=== PATIENT | female | born 1995 | race Hispanic/Latino ===

== ENCOUNTER 2020-09-03 18:58 | Emergency (ER) | payer OTHER, MEDICAID ==
--- NOTE | 2020-09-03 19:27 | Emergency Department Report ---
Blank Doc - Documentation Documentation: 25-year-old female that presents with right axilla abscess. This initial assessment/diagnostic orders/clinical plan/treatment(s) is/are subject to change based on patient's health status, clinical progression and re- assessment by fellow clinical providers in the ED. Further treatment and workup at subsequent clinical providers discretion. Patient/guardians urged not to elope from the ED as their condition may be serious if not clinically assessed and managed. Initial orders include: 1- Patient sent to [facility] for further evaluation and treatment
[2020-09-03 19:32] VITALS: BP 132/95
--- NOTE | 2020-09-03 21:35 | Emergency Department Report ---
- General Chief complaint: Skin/Abscess/Foreign Body Stated complaint: ABCESS Time Seen by Provider: 09/03/20 19:25 Source: patient Mode of arrival: Ambulatory Limitations: No Limitations - History of Present Illness Initial comments: Patient is 25 years old female with no significant past medical history. Patient presented to the ER complaining of right axilla pain and swelling since yesterday. Patient denied any fever or chills. Patient denied any other complaint. MD complaint: abscess/boil -: days(s) (2) Tetanus Up to Date: yes Location: RUE Severity: moderate Severity scale (0 -10): 5 Consistency: constant Treatments Prior to Arrival: none - Related Data Previous Rx's Medication Instructions Recorded Last Taken Type Clindamycin [Clindamycin CAP] 300 mg PO Q8H #30 cap 04/23/20 Unknown Rx predniSONE [Deltasone] 40 mg PO QDAY 5 Days #10 tab 04/23/20 Unknown Rx Allergies Allergy/AdvReac Type Severity Reaction Status Date / Time No Known Allergies Allergy Unverified 04/23/20 09:05 Abscess Boil HPI - HPI Chief Complaint: Skin/Abscess/Foreign Body Stated Complaint: ABCESS Time Seen by Provider: 09/03/20 19:25 Home Medications: Previous Rx's Medication Instructions Recorded Last Taken Type Clindamycin [Clindamycin CAP] 300 mg PO Q8H #30 cap 04/23/20 Unknown Rx predniSONE [Deltasone] 40 mg PO QDAY 5 Days #10 tab 04/23/20 Unknown Rx Allergies/Adverse Reactions: Allergies Allergy/AdvReac Type Severity Reaction Status Date / Time No Known Allergies Allergy Unverified 04/23/20 09:05 ED Review of Systems ROS: Stated complaint: ABCESS Other details as noted in HPI Comment: All other systems reviewed and negative Constitutional: denies: chills, fever Respiratory: denies: cough, shortness of breath, SOB with exertion, SOB at rest, wheezing Cardiovascular: denies: chest pain, palpitations Gastrointestinal: denies: abdominal pain, nausea, vomiting, diarrhea, constipation, hematemesis Musculoskeletal: denies: back pain Skin: lesions Neurological: denies: headache, weakness ED Past Medical Hx - Past Medical History Previous Medical History?: No - Surgical History Past Surgical History?: Yes Additional Surgical History: right ankle - Social History Smoking Status: Never Smoker Substance Use Type: None - Medications Home Medications: Home Medications Medication Instructions Recorded Confirmed Last Taken Type Clindamycin [Clindamycin CAP] 300 mg PO Q8H #30 cap 04/23/20 Unknown Rx predniSONE [Deltasone] 40 mg PO QDAY 5 Days #10 tab 04/23/20 Unknown Rx ED Physical Exam - General Limitations: No Limitations General appearance: alert, in no apparent distress - Head Head exam: Present: atraumatic, normocephalic, normal inspection - Eye Eye exam: Present: normal appearance - ENT ENT exam: Present: normal exam, normal orophraynx, mucous membranes moist - Neck Neck exam: Present: normal inspection, full ROM. Absent: tenderness, meningismus - Respiratory Respiratory exam: Present: normal lung sounds bilaterally - Cardiovascular Cardiovascular Exam: Present: regular rate, normal rhythm, normal heart sounds - GI/Abdominal GI/Abdominal exam: Present: soft. Absent: tenderness - Back Exam Back exam: Present: normal inspection. Absent: CVA tenderness (R), CVA tenderness (L) - Neurological Exam Neurological exam: Present: alert, oriented X3, CN II-XII intact - Skin Skin exam: Present: warm, erythema, other (Right axilla with swelling, redness and tenderness. Nonfluctuant.) ED Course Vital Signs 09/03/20 19:27 Temperature 99.5 F Pulse Rate 107 H Respiratory 18 Rate Blood Pressure 132/95 O2 Sat by Pulse 99 Oximetry ED Medical Decision Making - Medical Decision Making Patient is 25 years old female with no significant past medical history. Patient presented to the ER complaining of right axilla pain and swelling since yesterday. Patient denied any fever or chills. Patient denied any other complaint. Right axilla examined. There is a swelling and tenderness however there is no fluctuant fluid to indicate an abscess at this moment. Patient advised to apply warm compresses. Patient given prescription for doxycycline. Patient most likely suppurative hidradenitis. Patient advised to return to the ER if symptoms are not improved or follow-up with her primary doctor. Critical care attestation.: If time is entered above; I have spent that time in minutes in the direct care of this critically ill patient, excluding procedure time. ED Disposition Clinical Impression: Suppurative hidradenitis Disposition: TO HOME OR SELFCARE Is pt being admited?: No Condition: Stable Instructions: Abscess (ED) Referrals: PRIMARY CARE,MD [Primary Care Provider] - 3-5 Days
== END 2020-09-03 21:50 | disposition home or self-care (01) ==
LOC: ED 18:58
DX: L73.2 Hidradenitis suppurativa (principal); Z79.899 Other long term (current) drug therapy; Z98.890 Other specified postprocedural states
CPT/HCPCS: 99282

== ENCOUNTER 2021-03-19 16:08 | Emergency (ER) | payer MEDICAID | END 2021-03-19 23:59 | LOC: ED 16:08 | DX: H92.09 Otalgia, unspecified ear (principal); Z53.21 Procedure and treatment not carried out due to patient leaving prior to being seen by health care provider ==

== ENCOUNTER 2021-04-02 08:15 | Emergency (ER) | payer MEDICAID, OTHER ==
[2021-04-02 09:20] VITALS: BP 130/86
[2021-04-02 09:43] LABS: Bilirubin,Urine NEG (Negative); Blood,Urine NEG (Negative); Color,Urine Yellow (Yellow); Mucus,Urine FEW /HPF; Urobilinogen,Urine < 2.0 mg/dL (<2.0)
[2021-04-02 09:43] LABS: HCG Qualitative,Urine Negative (Negative)
[2021-04-02] MEDS ORDERED: DICYCLOMINE 20 MG TAB PO ONE (10:56)
[2021-04-02] MEDS ORDERED: FAMOTIDINE 20 MG TAB PO ONE (10:56)
[2021-04-02] MEDS ORDERED: ONDANSETRON 4 MG ODT TAB PO ONE (10:56)
--- NOTE | 2021-04-02 11:03 | Emergency Department Report ---
ED General Adult HPI - General Chief complaint: Abdominal Pain Stated complaint: NAUSEA Time Seen by Provider: 04/02/21 10:25 Source: patient Mode of arrival: Ambulatory Limitations: No Limitations - History of Present Illness Initial comments: 26-year-old -[place] female patient presents with complaints of nausea x3 days and intermittent left/mid upper abdominal pain starting yesterday. She denies any vomiting but admits to 3 episodes of diarrhea. She describes the abdominal pain as cramping and states it is colicky and lasts about 2 minutes at a time. No prior medical history per patient. She also denies any melena/hematochezia, urinary symptoms, fever/chills/sweats, cough, or chest pain. Patient rates the pain as a 5/10 in severity. -: Sudden - Related Data Previous Rx's Medication Instructions Recorded Last Taken Type Clindamycin [Clindamycin CAP] 300 mg PO Q8H #30 cap 04/23/20 Unknown Rx predniSONE [Deltasone] 40 mg PO QDAY 5 Days #10 tab 04/23/20 Unknown Rx Doxycycline Hyclate [Doxycycline 100 mg PO Q12HR #20 tab 09/03/20 Unknown Rx Hyclate TAB] traMADoL [Ultram 50 MG tab] 50 mg PO Q4HR PRN #14 tablet 09/03/20 Unknown Rx Dicyclomine [Bentyl] 20 mg PO QID #30 tablet 04/02/21 Unknown Rx Famotidine [Pepcid] 20 mg PO BID #20 tablet 04/02/21 Unknown Rx Ondansetron [Zofran ODT TAB] 4 mg PO Q8HR PRN #14 tab.rapdis 04/02/21 Unknown Rx Allergies Allergy/AdvReac Type Severity Reaction Status Date / Time No Known Allergies Allergy Unverified 04/23/20 09:05 ED Review of Systems ROS: Stated complaint: NAUSEA Other details as noted in HPI Constitutional: denies: chills, fever ENT: denies: throat pain Respiratory: denies: cough, shortness of breath Cardiovascular: denies: chest pain Gastrointestinal: abdominal pain, nausea, diarrhea. denies: vomiting, constipation, hematemesis, melena, hematochezia Genitourinary: denies: frequency, hematuria, abnormal menses Skin: denies: rash, change in color ED Past Medical Hx - Past Medical History Previous Medical History?: No - Surgical History Past Surgical History?: Yes Additional Surgical History: right ankle - Social History Smoking Status: Never Smoker Substance Use Type: None - Medications Home Medications: Home Medications Medication Instructions Recorded Confirmed Last Taken Type Clindamycin [Clindamycin CAP] 300 mg PO Q8H #30 cap 04/23/20 Unknown Rx predniSONE [Deltasone] 40 mg PO QDAY 5 Days #10 tab 04/23/20 Unknown Rx Doxycycline Hyclate [Doxycycline 100 mg PO Q12HR #20 tab 09/03/20 Unknown Rx Hyclate TAB] traMADoL [Ultram 50 MG tab] 50 mg PO Q4HR PRN #14 tablet 09/03/20 Unknown Rx Dicyclomine [Bentyl] 20 mg PO QID #30 tablet 04/02/21 Unknown Rx Famotidine [Pepcid] 20 mg PO BID #20 tablet 04/02/21 Unknown Rx Ondansetron [Zofran ODT TAB] 4 mg PO Q8HR PRN #14 tab.rapdis 04/02/21 Unknown Rx ED Physical Exam - General Limitations: No Limitations General appearance: alert, in no apparent distress - Head Head exam: Present: atraumatic, normocephalic - Eye Eye exam: Present: normal appearance. Absent: scleral icterus - Respiratory Respiratory exam: Present: normal lung sounds bilaterally. Absent: respiratory distress - Cardiovascular Cardiovascular Exam: Present: regular rate, normal rhythm - GI/Abdominal GI/Abdominal exam: Present: soft, tenderness (mild epigastric/LUQ ). Absent: distended - Extremities Exam Extremities exam: Present: full ROM - Back Exam Back exam: Present: normal inspection. Absent: CVA tenderness (L) - Neurological Exam Neurological exam: Present: alert, oriented X3 - Psychiatric Psychiatric exam: Present: normal affect, normal mood - Skin Skin exam: Present: warm, dry, intact, normal color. Absent: rash ED Course Vital Signs 04/02/21 09:18 Temperature 99 F Pulse Rate 87 Respiratory 16 Rate Blood Pressure 130/86 [Right] O2 Sat by Pulse 99 Oximetry ED Medical Decision Making - Lab Data Result diagrams: 04/02/21 11:31 04/02/21 11:31 Lab Results 04/02/21 04/02/21 04/02/21 Range/Units 09:26 11:31 11:31 WBC 5.4 (4.5-11.0) K/mm3 RBC 4.99 (3.65-5.03) M/mm3 Hgb 10.2 (10.1-14.3) gm/dl Hct 34.1 (30.3-42.9) % MCV 68 L (79-97) fl MCH 21 L (28-32) pg MCHC 30 (30-34) % RDW 18.7 H (13.2-15.2) % Plt Count 312 (140-440) K/mm3 Lymph % (Auto) 47.3 H (13.4-35.0) % [place] % (Auto) 8.9 H (0.0-7.3) % Eos % (Auto) 0.7 (0.0-4.3) % Baso % (Auto) 0.3 (0.0-1.8) % Lymph # (Auto) 2.5 (1.2-5.4) K/mm3 [place] # (Auto) 0.5 (0.0-0.8) K/mm3 Eos # (Auto) 0.0 (0.0-0.4) K/mm3 Baso # (Auto) 0.0 (0.0-0.1) K/mm3 Seg Neutrophils % 42.8 (40.0-70.0) % Seg Neutrophils # 2.3 (1.8-7.7) K/mm3 Sodium 135 L (137-145) mmol/L Potassium 3.9 (3.6-5.0) mmol/L Chloride 103.3 (98-107) mmol/L Carbon Dioxide 25 (22-30) mmol/L Anion Gap 11 mmol/L BUN 8 (7-17) mg/dL Creatinine 0.6 (0.6-1.2) mg/dL Estimated GFR > 60 ml/min BUN/Creatinine Ratio 13 % Glucose 90 (65-100) mg/dL Calcium 8.3 L (8.4-10.2) mg/dL Total Bilirubin 0.20 (0.1-1.2) mg/dL AST 14 (5-40) units/L ALT 9 (7-56) units/L Alkaline Phosphatase 52 (35-129) units/L Total Protein 7.0 (6.3-8.2) g/dL Albumin 3.6 L (3.9-5) g/dL Albumin/Globulin Ratio 1.1 % Lipase (13-60) units/L Urine Color Yellow (Yellow) Urine Turbidity Hazy (Clear) Urine pH 5.0 (5.0-7.0) Ur Specific [place] 1.024 (1.003-1.030) Urine Protein 100 mg/dl (Negative) mg/dL Urine Glucose (UA) Neg (Negative) mg/dL Urine Ketones Neg (Negative) mg/dL Urine Blood Neg (Negative) Urine Nitrite Neg (Negative) Urine Bilirubin Neg (Negative) Urine Urobilinogen < 2.0 (<2.0) mg/dL Ur Leukocyte Esterase Neg (Negative) Urine WBC (Auto) 6.0 (0.0-6.0) /HPF Urine RBC (Auto) 6.0 (0.0-6.0) /HPF U Epithel Cells (Auto) 26.0 H (0-13.0) /HPF Urine Mucus Few /HPF Urine HCG, Qual (Negative) 04/02/21 04/02/21 Range/Units 11:31 Unknown WBC (4.5-11.0) K/mm3 RBC (3.65-5.03) M/mm3 Hgb (10.1-14.3) gm/dl Hct (30.3-42.9) % MCV (79-97) fl MCH (28-32) pg MCHC (30-34) % RDW (13.2-15.2) % Plt Count (140-440) K/mm3 Lymph % (Auto) (13.4-35.0) % [place] % (Auto) (0.0-7.3) % Eos % (Auto) (0.0-4.3) % Baso % (Auto) (0.0-1.8) % Lymph # (Auto) (1.2-5.4) K/mm3 [place] # (Auto) (0.0-0.8) K/mm3 Eos # (Auto) (0.0-0.4) K/mm3 Baso # (Auto) (0.0-0.1) K/mm3 Seg Neutrophils % (40.0-70.0) % Seg Neutrophils # (1.8-7.7) K/mm3 Sodium (137-145) mmol/L Potassium (3.6-5.0) mmol/L Chloride (98-107) mmol/L Carbon Dioxide (22-30) mmol/L Anion Gap mmol/L BUN (7-17) mg/dL Creatinine (0.6-1.2) mg/dL Estimated GFR ml/min BUN/Creatinine Ratio % Glucose (65-100) mg/dL Calcium (8.4-10.2) mg/dL Total Bilirubin (0.1-1.2) mg/dL AST (5-40) units/L ALT (7-56) units/L Alkaline Phosphatase (35-129) units/L Total Protein (6.3-8.2) g/dL Albumin (3.9-5) g/dL Albumin/Globulin Ratio % Lipase 40 (13-60) units/L Urine Color (Yellow) Urine Turbidity (Clear) Urine pH (5.0-7.0) Ur Specific [place] (1.003-1.030) Urine Protein (Negative) mg/dL Urine Glucose (UA) (Negative) mg/dL Urine Ketones (Negative) mg/dL Urine Blood (Negative) Urine Nitrite (Negative) Urine Bilirubin (Negative) Urine Urobilinogen (<2.0) mg/dL Ur Leukocyte Esterase (Negative) Urine WBC (Auto) (0.0-6.0) /HPF Urine RBC (Auto) (0.0-6.0) /HPF U Epithel Cells (Auto) (0-13.0) /HPF Urine Mucus /HPF Urine HCG, Qual Negative (Negative) - Medical Decision Making 26-year-old -[place] female patient presents with complaints of nausea x3 days and intermittent left/mid upper abdominal pain starting yesterday. She denies any vomiting but admits to 3 episodes of diarrhea. She describes the abdominal pain as cramping and states it is colicky and lasts about 2 minutes at a time. No prior medical history per patient. She also denies any melena/hematochezia, urinary symptoms, fever/chills/sweats, cough, or chest pain. Patient rates the pain as a 5/10 in severity. Labs are negative for any acute abnormalities. No significant abdominal tenderness noted on exam. Patient states her symptoms have completely resolved with Bentyl and GI cocktail. Suspect gastroenteritis. Her vitals are normal, she is well-appearing, she is stable for discharge home. Patient to follow-up with her primary care doctor in 3 to 5 days. Strict return precautions were discussed in detail with patient who verbalized understanding. Critical care attestation.: If time is entered above; I have spent that time in minutes in the direct care of this critically ill patient, excluding procedure time. ED Disposition Clinical Impression: Nausea, Abdominal cramping, Diarrhea Disposition: TO HOME OR SELFCARE Is pt being admited?: No Condition: Stable Instructions: Nausea, Adult, Viral Gastroenteritis, Adult, Abdominal Pain (ED) Prescriptions: Dicyclomine [Bentyl] 20 mg PO QID #30 tablet Famotidine [Pepcid] 20 mg PO BID #20 tablet Ondansetron [Zofran ODT TAB] 4 mg PO Q8HR PRN #14 tab.rapdis PRN Reason: Nausea And Vomiting Referrals: PRIMARY CARE,MD [Primary Care Provider] - 3-5 Days [facility] [Provider Group] - as needed Forms: Work/School Release Form(ED)
[2021-04-02 11:58] LABS: Basophils % (Auto) 0.3 % (0.0-1.8); Eosinophils % (Auto) 0.7 % (0.0-4.3); Lymphocytes # (Auto) 2.5 K/mm3 (1.2-5.4); Lymphocytes % (Auto) 47.3 % (13.4-35.0); Mean Corpuscular HGB Conc 30 % (30-34); Monocytes # (Auto) 0.5 K/mm3 (0.0-0.8); Monocytes % (Auto) 8.9 % (0.0-7.3); Platelet Count 312 K/mm3 (140-440); Red Blood Count 4.99 M/mm3 (3.65-5.03); Red Cell Distribution Width 18.7 % (13.2-15.2)
[2021-04-02 12:01] LABS: Hematocrit 34.1 % (30.3-42.9); Hemoglobin 10.2 gm/dl (10.1-14.3); Mean Corpuscular Volume 68 fl (79-97)
[2021-04-02 12:22] LABS: Alanine Aminotransferase 9 units/L (7-56); Albumin 3.6 g/dL (3.9-5); Blood Urea Nitrogen 8 mg/dL (7-17); Calcium 8.3 mg/dL (8.4-10.2); Hemolysis Index 1
[2021-04-02 12:24] LABS: BUN/Creatinine Ratio 13
== END 2021-04-02 12:58 | disposition home or self-care (01) ==
LOC: ED 08:15
DX: R11.0 Nausea (principal); R10.13 Epigastric pain; R19.7 Diarrhea, unspecified; Z98.890 Other specified postprocedural states; Z79.899 Other long term (current) drug therapy
CPT/HCPCS: 36415; 80053; 81001; 81025; 83690; 85025; 99283; Q0162

== ENCOUNTER 2022-07-24 17:15 | Emergency (ER) | payer OTHER, MEDICAID ==
[2022-07-24 17:45] VITALS: BP 122/86
[2022-07-24] MEDS ORDERED: AMOXICILLIN/K CLAV 875/125MG TAB PO ONE (20:43)
[2022-07-24] MEDS ORDERED: dexAMETHasone 20 MG/5 ML VIAL IM ONE (20:43)
[2022-07-24] MEDS ORDERED: KETOROLAC 30 MG/1 ML INJ IM ONE (20:43)
--- NOTE | 2022-07-24 20:53 | Emergency Department Report ---
ED General Adult HPI - General Chief complaint: Fever Stated complaint: FATIGUE/SORE THROAT/NECK PAIN Time Seen by Provider: 07/24/22 20:42 Source: patient Mode of arrival: Ambulatory Limitations: No Limitations - History of Present Illness Initial comments: Patient 27-year-old female with history of recurrent strep throat who presents for sore throat fever for the past 2 days. No T-max noted at home temp was 101.2 in triage earlier today. Symptoms include dysphagia and malaise. Throat pain described at 4/10 burning with swallowing. Symptoms are relieved by nothing tried. He denies shortness of breath there is no cough wheezing or stridor. - Related Data Previous Rx's Medication Instructions Recorded Last Taken Type Clindamycin [Clindamycin CAP] 300 mg PO Q8H #30 cap 04/23/20 Unknown Rx predniSONE [Deltasone] 40 mg PO QDAY 5 Days #10 tab 04/23/20 Unknown Rx Doxycycline Hyclate [Doxycycline 100 mg PO Q12HR #20 tab 09/03/20 Unknown Rx Hyclate TAB] traMADoL [Ultram 50 MG tab] 50 mg PO Q4HR PRN #14 tablet 09/03/20 Unknown Rx Dicyclomine [Bentyl] 20 mg PO QID #30 tablet 04/02/21 Unknown Rx Famotidine [Pepcid] 20 mg PO BID #20 tablet 04/02/21 Unknown Rx Ondansetron [Zofran ODT TAB] 4 mg PO Q8HR PRN #14 tab.rapdis 04/02/21 Unknown Rx Amoxicillin/K Clav Tab [Augmentin 1 tab PO BID 7 Days #14 tab 07/24/22 Unknown Rx 875 mg] Ibuprofen [Motrin 800 MG tab] 800 mg PO Q8HR PRN #30 tablet 07/24/22 Unknown Rx dexAMETHasone [Decadron] 4 mg PO BID 3 Days #6 tablet 07/24/22 Unknown Rx Allergies Allergy/AdvReac Type Severity Reaction Status Date / Time No Known Allergies Allergy Unverified 04/23/20 09:05 ED Review of Systems ROS: Stated complaint: FATIGUE/SORE THROAT/NECK PAIN Other details as noted in HPI Constitutional: chills, fever, malaise Eyes: denies: eye pain, eye discharge, vision change ENT: throat pain. denies: ear pain, congestion Respiratory: denies: cough, shortness of breath, wheezing Cardiovascular: denies: chest pain, palpitations Endocrine: no symptoms reported Gastrointestinal: denies: abdominal pain, nausea, diarrhea Genitourinary: denies: urgency, dysuria, discharge Musculoskeletal: denies: back pain, joint swelling, arthralgia Skin: denies: rash, lesions Neurological: headache. denies: weakness, numbness, paresthesias, confusion, vertigo Psychiatric: denies: anxiety, depression Hematological/Lymphatic: denies: easy bleeding, easy bruising ED Past Medical Hx - Past Medical History Previous Medical History?: No - Surgical History Past Surgical History?: Yes Additional Surgical History: right ankle - Social History Smoking Status: Unknown if ever smoked Substance Use Type: None - Medications Home Medications: Home Medications Medication Instructions Recorded Confirmed Last Taken Type Clindamycin [Clindamycin CAP] 300 mg PO Q8H #30 cap 04/23/20 Unknown Rx predniSONE [Deltasone] 40 mg PO QDAY 5 Days #10 tab 04/23/20 Unknown Rx Doxycycline Hyclate [Doxycycline 100 mg PO Q12HR #20 tab 09/03/20 Unknown Rx Hyclate TAB] traMADoL [Ultram 50 MG tab] 50 mg PO Q4HR PRN #14 tablet 09/03/20 Unknown Rx Dicyclomine [Bentyl] 20 mg PO QID #30 tablet 04/02/21 Unknown Rx Famotidine [Pepcid] 20 mg PO BID #20 tablet 04/02/21 Unknown Rx Ondansetron [Zofran ODT TAB] 4 mg PO Q8HR PRN #14 tab.rapdis 04/02/21 Unknown Rx Amoxicillin/K Clav Tab [Augmentin 1 tab PO BID 7 Days #14 tab 07/24/22 Unknown Rx 875 mg] Ibuprofen [Motrin 800 MG tab] 800 mg PO Q8HR PRN #30 tablet 07/24/22 Unknown Rx dexAMETHasone [Decadron] 4 mg PO BID 3 Days #6 tablet 07/24/22 Unknown Rx ED Physical Exam - General Limitations: No Limitations General appearance: alert, in no apparent distress - Head Head exam: Present: normocephalic, normal inspection - Eye Eye exam: Present: PERRL Pupils: Present: normal accommodation - ENT ENT exam: Present: mucous membranes moist, TM's normal bilaterally, normal external ear exam - Expanded ENT Exam Expanded Mouth exam: Absent: trismus Throat exam: Positive: tonsillar erythema, tonsillomegaly, tonsillar exudate, other (Uvula midline no lesions noted tonsillar exudate, mild swelling no wheezing or stridor. Airway is patent). Negative: R peritonsillar mass, L peritonsillar mass - Neck Neck exam: Present: normal inspection, tenderness, full ROM, lymphadenopathy (Anterior auricle lymph bilateral). Absent: meningismus, thyromegaly - Respiratory Respiratory exam: Present: normal lung sounds bilaterally. Absent: respiratory distress, wheezes, rales, rhonchi, stridor, chest wall tenderness - Cardiovascular Cardiovascular Exam: Present: regular rate, normal rhythm, normal heart sounds. Absent: systolic murmur, diastolic murmur, rubs, gallop - GI/Abdominal GI/Abdominal exam: Present: soft, normal bowel sounds. Absent: distended, tenderness, guarding, rebound, rigid, bruit, hernia - Rectal Rectal exam: Present: deferred - Extremities Exam Extremities exam: Present: normal inspection, full ROM, normal capillary refill - Back Exam Back exam: Present: normal inspection, full ROM. Absent: CVA tenderness (R), CVA tenderness (L) - Neurological Exam Neurological exam: Present: alert, oriented X3, CN II-XII intact, normal gait - Expanded Neurological Exam Expanded Patient oriented to: Present: person, place, time Speech: Present: fluid speech Cranial nerves: EOM's Intact: Normal, Gag Reflex: Normal, Tongue Deviation: Normal Motor strength exam: RUE: 5, LUE: 5, RLE: 5, LLE: 5 Best Eye Response ([place]): (4) open spontaneously Best Motor Response ([place]): (6) obeys commands Best Verbal Response ([place]): (5) oriented [place] Total: 15 - Psychiatric Psychiatric exam: Present: normal affect, normal mood - Skin Skin exam: Present: warm, dry, intact, normal color. Absent: rash ED Course Vital Signs 07/24/22 17:43 Temperature 100.2 F H Pulse Rate 120 H Respiratory 18 Rate Blood Pressure 122/86 O2 Sat by Pulse 98 Oximetry ED Medical Decision Making - Medical Decision Making Symptoms improved with medications given in ED, rapid strep is pending however there is noted exudate bilateral tonsillar swelling and erythema plan treat for pharyngitis, follow-up with ENT in 2 to 3 days. Return to emergency department should symptoms worsen. Patient is currently tolerating p.o. intake. Fevers resolved. Vital signs are improved. Patient is alert oriented x3 amatory with steady gait. There is no acute distress Critical care attestation.: If time is entered above; I have spent that time in minutes in the direct care of this critically ill patient, excluding procedure time. ED Disposition Clinical Impression: Pharyngitis Qualifiers: Pharyngitis/tonsillitis etiology: unspecified etiology Qualified Code(s): J02.9 - Acute pharyngitis, unspecified Disposition: HOME / SELF CARE / HOMELESS Is pt being admited?: No Does the pt Need Aspirin: No Condition: Stable Instructions: Pharyngitis Additional Instructions: Medication as prescribed, follow-up with your doctor in 2 to 3 days. Return to emergency department should symptoms worsen. Prescriptions: Amoxicillin/K Clav Tab [Augmentin 875 mg] 1 tab PO BID 7 Days #14 tab dexAMETHasone [Decadron] 4 mg PO BID 3 Days #6 tablet Ibuprofen [Motrin 800 MG tab] 800 mg PO Q8HR PRN #30 tablet PRN Reason: Pain Referrals: ROBERTO NUNEZ MD [Staff Physician] - 3-5 Days LOVE MTZ MD [Referring] - 3-5 Days Forms: Work/School Release Form(ED) Time of Disposition: 21:55
== END 2022-07-24 22:07 | disposition home or self-care (01) ==
LOC: ED 17:15
DX: J02.9 Acute pharyngitis, unspecified (principal)
CPT/HCPCS: 96372; 99282; J1100; J1885